=== PATIENT | female | born 1995 | race African-American/Black ===

== ENCOUNTER 2016-12-25 21:58 | Emergency (ER) | payer SELFPAY ==
[~2016-12-25] VITALS: Ht 167.6 cm; Wt 80.0 kg
[2016-12-25 22:06] VITALS: BP 120/58; PULSE 68; RESP 18; TEMP 97.6; O2SAT 100
[2016-12-25] MEDS ORDERED: SODIUM CHLOR 0.9% 1000 ML INJ 1,000 ML IV SCH (22:11)
[2016-12-25] MEDS ORDERED: MORPHINE SULFATE 4 MG/ML INJ IV PUSH ONE (22:15)
[2016-12-25] MEDS ORDERED: ONDANSETRON HCL 4 MG/2 ML VIAL IV PUSH ONE (22:15)
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
[2016-12-25] MEDS ORDERED: ACETAMINOPHEN/HYDROcodone 325 MG/5 MG TAB PO ONE (22:45)
[2016-12-25 22:53] LABS: BLOOD, URINE NEG (NEG); COMMENT (UR) CULT NOT INDICATED; CULTURE IF INDICATED CULT NOT INDICATED; GLUCOSE,URINE NEG (NEG); HYALINE CAST, URINE 2 /lpf (RARE); KETONE, URINE NEG (NEG); MUCUS URINE FEW /lpf (OCC); NITRITE,URINE NEG (NEG); PH, URINE 5.5 (5.0-8.5); SQUAMOUS EPITHELIAL CELL URINE 1 /hpf (0-5); URINE COLOR YELLOW (YELLW/STRAW)
--- NOTE | 2016-12-25 22:54 | PD ---
Data Data Last Documented VS Vital Signs Date Time Temp Pulse Resp B/P Pulse Ox O2 Delivery O2 Flow Rate FiO2 12/25/16 22:06 97.6 68 18 120/58 100 Orders Urinalysis - C+S If Indicated (12/25/16 22:11) Iv Access Insert/Monitor (12/25/16 22:11) Morphine Inj (Morphine Inj) (12/25/16 22:15) Sodium Chlor 0.9% 1000 Ml Inj (Ns 1000 M (12/25/16 22:11) Ed Urine Pregnancytest Poc (12/25/16 22:11) Ondansetron Inj (Zofran Inj) (12/25/16 22:15) Acetamin-Hydrocod 325-5 Mg ([place] 5-325 (12/25/16 22:45) Labs Laboratory Tests Test 12/25/16 22:15 Urine Color YELLOW Urine Turbidity CLEAR Urine pH 5.5 Urine Specific [place] 1.028 Urine Protein NEG mg/dL Urine Glucose (UA) NEG mg/dL Urine Ketones NEG mg/dL Urine Occult Blood NEG Urine Nitrite NEG Urine Bilirubin NEG Urine Urobilinogen LESS THAN 2.0 MG/DL Urine Leukocyte Esterase NEG Urine RBC LESS THAN 1 /hpf Urine WBC LESS THAN 1 /hpf Urine Squamous Epithelial 1 /hpf Cells Urine Hyaline Casts 2 /lpf Urine Mucus FEW /lpf Microscopic Urinalysis Comment CULT NOT INDICATED MDM Medical Record Reviewed: Yes Supervised Visit with [place]: No Scripts No Active Prescriptions or Reported Meds Mariela Castorena MD Dec 25, 2016 22:54 history and physical. The patient was initially provided [-]. The patients laboratory studies were reviewed and remarkable for [-]. Radiology studies were reviewed and remarkable for [-] Scripts No Active Prescriptions or Reported Meds Mariela Castorena MD Dec 25, 2016 22:54 Mariela Castorena MD Dec 25, 2016 22:54
== END 2016-12-25 23:10 | disposition left against medical advice (07) ==
LOC: NEPE 21:58
DX: R10.32 Left lower quadrant pain (principal)
CPT/HCPCS: 81001; 84703; 99285

== ENCOUNTER 2017-01-02 01:30 | Emergency (ER) | payer SELFPAY ==
[~2017-01-02] VITALS: Ht 165.1 cm; Wt 80.0 kg
[2017-01-02 01:32] VITALS: BP 119/74; PULSE 69; RESP 16; TEMP 98.6; O2SAT 100
[2017-01-02] MEDS ORDERED: TRIA0.022 TOPICAL (02:38)
--- NOTE | 2017-01-02 02:40 | PD ---
HPI Chief Complaint: Skin Problem Time Seen by Provider: 02:36 Travel History International Travel<30 days: No Contact w/Intl Traveler<30days: No Traveled to known affect area: No History of Present Illness HPI Examined in the presence of a female nurse. 21-year-old female here with a forehead rash which started earlier today. The rash is intermittently mildly pruritic. Denies any new creams, lotions, detergents, hair chemicals, shampoos. Denies sore throat, cough, congestion, fevers, chills. No other complaints. PFSH Past Medical History Medical History: Denies Significant Hx Diminished Hearing: No ?: Not Past Surgical History Surgical History: No Previous Surgery Social History Alcohol Use: No Tobacco Use: No Substance Use: No Allergies-Medications (Allergen,Severity, Reaction): Coded Allergies: No Known Allergies (Unverified , 12/25/16) Reported Meds & Prescriptions Reported Meds & Active Scripts Active No Active Prescriptions or Reported Medications Review of Systems Except as stated in HPI: all other systems reviewed are Neg Physical Exam Narrative GENERAL: Well-nourished female in no acute distress SKIN: Warm and dry. Mild papular rash noted across the forehead. No vesicles, no pustules, no erythema, no induration, no fluctuance. HEAD: Atraumatic. Normocephalic. EYES: Pupils equal and round. No scleral icterus. No injection or drainage. ENT: No nasal bleeding or discharge. Mucous membranes pink and moist. NECK: Trachea midline. No JVD. CARDIOVASCULAR: Regular rate and rhythm. No murmur appreciated. RESPIRATORY: No accessory muscle use. Clear to auscultation. Breath sounds equal bilaterally. Data Data Last Documented VS Vital Signs Date Time Temp Pulse Resp B/P (MAP) Pulse Ox O2 Delivery O2 Flow Rate FiO2 01/02/17 01:32 98.6 69 16 119/74 (89) 100 Orders Orders Diphenhydramine (Benadryl) (01/02/17 02:45) [facility] Medical Decision Making Medical Screen Exam Complete: Yes Emergency Medical Condition: Yes Medical Record Reviewed: Yes Differential Diagnosis Irritant contact dermatitis, allergic contact dermatitis, acne, folliculitis Narrative Course History is most consistent with an irritant contact dermatitis, likely secondary to a hair chemical or facial chemical. She will be discharged with a short course of topical triamcinolone cream. Recommended Benadryl for itching. Diagnosis Primary Impression: Irritant contact dermatitis Qualified Codes: L24.9 - Irritant contact dermatitis, unspecified cause Additional Instructions: Medications prescribed. [id number] Benadryl for itching. Med/Other Pt SpecificInfo: Prescription(s) given Scripts Triamcinolone Topical (Triamcinolone Topical) 0.025 % Oint 1 APPLIC TOPICAL BID for Inflammation for 7 Days, GM 0 Refills Prov: Skylar Rodríguez DO 01/02/17 Disposition: 01 DISCHARGE HOME Condition: Stable Marco Lee Jan 02, 2017 02:40
[2017-01-02] MEDS ORDERED: diphenhydrAMINE HCL 25 MG CAP PO ONE (02:45)
== END 2017-01-02 03:43 | disposition home or self-care (01) ==
LOC: NEPD 01:30
DX: L24.9 Irritant contact dermatitis, unspecified cause (principal)
CPT/HCPCS: 99283

== ENCOUNTER 2017-06-19 01:16 | Emergency (ER) | payer SELFPAY ==
[~2017-06-19] VITALS: Ht 165.1 cm; Wt 82.0 kg
[~2017-06-19 01:16] MED LIST: TRIA0.022 TOPICAL
[2017-06-19 01:26] VITALS: BP 115/57; PULSE 76; RESP 16; TEMP 97.6; O2SAT 99
[2017-06-19] MEDS ORDERED: PANTOPRAZOLE SOD 40 MG DELAYED RELEASE TAB PO ONE (02:15)
--- NOTE | 2017-06-19 02:18 | PD ---
HPI Chief Complaint: Chest Pain Time Seen by Provider: 02:05 Travel History International Travel<30 days: No Contact w/Intl Traveler<30days: No Traveled to known affect area: No History of Present Illness HPI 21-year-old female complains of left upper chest pain and left upper sternal pain. Patient states that the pain started yesterday afternoon. Patient states the pain is sharp pain intermittent pain localized to the upper part of the chest and left upper chest area. Patient denies any pain radiation. Patient denies palpitation nausea diaphoresis. Patient states that she has history of reflux problem. Patient denies any abdominal pain. Patient denies any fever chills. Patient denies any coughing congestion. Patient denies any history of CAD. Patient denies history hypertension, diabetes, hyperlipidemia. Patient is a nonsmoker. Patient denies any illicit drug or alcohol abuse. PFSH Past Medical History Diminished Hearing: No GERD: Yes Tetanus Vaccination: > 5 Years ?: Unknown Past Surgical History Surgical History: No Previous Surgery Social History Alcohol Use: No Tobacco Use: No Substance Use: No Allergies-Medications (Allergen,Severity, Reaction): Coded Allergies: No Known Allergies (Unverified Adverse Reaction, Unknown, 06/19/17) Reported Meds & Prescriptions Reported Meds & Active Scripts Active No Active Prescriptions or Reported Medications Review of Systems General / Constitutional: No: Fever Eyes: No: Visual changes HENT: No: Headaches Cardiovascular: Positive: Chest Pain or Discomfort Respiratory: No: Shortness of Breath Gastrointestinal: No: Abdominal Pain Genitourinary: No: Dysuria Musculoskeletal: No: Pain Skin: No Rash Neurologic: No: Weakness Psychiatric: No: Depression Endocrine: No: Polydipsia Hematologic/Lymphatic: No: Easy Bruising Physical Exam Narrative GENERAL: Well-nourished, well-developed patient. SKIN: Focused skin assessment warm/dry. HEAD: Normocephalic. EYES: No scleral icterus. No injection or drainage. NECK: Supple, trachea midline. No JVD or lymphadenopathy. CARDIOVASCULAR: Regular rate and rhythm without murmurs, gallops, or rubs. RESPIRATORY: Breath sounds equal bilaterally. No accessory muscle use. GASTROINTESTINAL: Abdomen soft, non-tender, nondistended. MUSCULOSKELETAL: No cyanosis, or edema. BACK: Nontender without obvious deformity. No CVA tenderness. Neurologic exam normal. Data Data Last Documented VS Vital Signs Date Time Temp Pulse Resp B/P (MAP) Pulse Ox O2 Delivery O2 Flow Rate FiO2 06/19/17 02:44 76 16 115/57 (76) 98 Room Air 06/19/17 01:26 97.6 Orders Orders Electrocardiogram (06/19/17 02:11) Complete Blood Count With Diff (06/19/17 02:11) Comprehensive Metabolic Panel (06/19/17 02:11) Creatine Kinase (Cpk) (06/19/17 02:11) Troponin I (06/19/17 02:11) Lipase (06/19/17 02:11) Urinalysis - C+S If Indicated (06/19/17 02:11) Chest, Single Ap (06/19/17 02:11) Iv Access Insert/Monitor (06/19/17 02:11) Ecg Monitoring (06/19/17 02:11) Oximetry (06/19/17 02:11) Ed Urine Pregnancytest Poc (06/19/17 02:11) Pantoprazole (Protonix) (06/19/17 02:15) Labs Laboratory Tests Test 06/19/17 02:40 06/19/17 03:15 White Blood Count 6.4 TH/MM3 Red Blood Count 4.95 MIL/MM3 Hemoglobin 14.3 GM/DL Hematocrit 42.5 % Mean Corpuscular Volume 85.9 FL Mean Corpuscular Hemoglobin 28.9 PG Mean Corpuscular Hemoglobin Concent 33.7 % Red Cell Distribution Width 14.0 % Platelet Count 215 TH/MM3 Mean Platelet Volume 9.2 FL Neutrophils (%) (Auto) 45.3 % Lymphocytes (%) (Auto) 47.7 % Monocytes (%) (Auto) 6.5 % Eosinophils (%) (Auto) 0.2 % Basophils (%) (Auto) 0.3 % Neutrophils # (Auto) 2.9 TH/MM3 Lymphocytes # (Auto) 3.0 TH/MM3 Monocytes # (Auto) 0.4 TH/MM3 Eosinophils # (Auto) 0.0 TH/MM3 Basophils # (Auto) 0.0 TH/MM3 CBC Comment DIFF FINAL Differential Comment MDM Medical Decision Making Medical Screen Exam Complete: Yes Emergency Medical Condition: Yes Interpretation(s) EKG shows sinus rhythm nonspecific ST-T wave change. Last Impressions Chest X-Ray 06/19/17210 Signed Impressions: Service Date/Time: Monday, June 19, 2017 02:20 - CONCLUSION: No acute cardiopulmonary abnormality is identified. Mac Lozano MD 3:54 AM. CBC within normal limit. Differential Diagnosis Differential diagnosis including musculoskeletal, costochondritis, angina, ID, PE, pneumothorax, GERD. Narrative Course 21-year-old female with chest pain. The pain is atypical. Protonix 40 mg by mouth given. 4:08 AM. Laboratory reported blood specimen hemolyzed. Requested redrawn. Patient refuses blood redrawn. Patient wants to leave. Diagnosis Primary Impression: Atypical chest pain Patient Instructions: General Instructions Additional Instructions: Advil or Tylenol for pain. Follow-up with local physician. Return if wishes for further workup. Scripts No Active Prescriptions or Reported Meds Disposition: 07 AGAINST MEDICAL ADVICE Condition: Stable Bobby Ernandez MD Jun 19, 2017 02:18
--- NOTE | 2017-06-19 02:38 | RADRPT ---
EXAM DATE/TIME: 06/19/2017 02:20 [place] COMPARISON: No previous studies available for comparison. INDICATIONS : Short of breath, chest pain. MEDICAL HISTORY : None. SURGICAL HISTORY : None. ENCOUNTER: Initial ACUITY: 1 day PAIN SCORE: 0/10 LOCATION: Bilateral chest FINDINGS: Portable AP view of the chest demonstrates a normal-sized cardiac silhouette. No effusion, consolidat ion, or pneumothorax is visualized. The bones and soft tissues demonstrate no acute abnormality. Lung s are underinflated. CONCLUSION: No acute cardiopulmonary abnormality is identified. Mac Lozano MD on June 19, 2017 at 2:36 Board Certified Radiologist. This report was verified electronically.
[2017-06-19 02:44] VITALS: BP 115/57; PULSE 76; RESP 16; O2SAT 98
[2017-06-19 02:56] LABS: AUTOMATED NEUTROPHIL # 2.9 TH/MM3 (1.8-7.7); BASOPHIL % 0.3 % (0.0-2.0); EOSINOPHIL % 0.2 % (0.0-4.0); HEMATOCRIT 42.5 % (35.0-46.0); HEMOGLOBIN 14.3 GM/DL (11.6-15.3); LYMPH % 47.7 % (9.0-44.0); MEAN CELL VOLUME 85.9 FL (80.0-100.0); MEAN CORPUSCULAR HEMOGLOBIN 28.9 PG (27.0-34.0); MEAN CORPUSCULAR HGB CONC 33.7 % (32.0-36.0); MEAN PLATELET VOLUME 9.2 FL (7.0-11.0); MONO % 6.5 % (0.0-8.0); MONOCYTE # 0.4 TH/MM3 (0-0.9); NEUT % 45.3 % (16.0-70.0); PLATELET COUNT 215 TH/MM3 (150-450); RED BLOOD COUNT 4.95 MIL/MM3 (4.00-5.30); WHITE BLOOD COUNT 6.4 TH/MM3 (4.0-11.0)
--- NOTE | 2017-06-19 11:02 | EKG ---
Date Performed: 06/19/2017 Time Performed: 01:29:11 PTAGE: 21 years EKG: Sinus rhythm WITH SINUS ARRHYTHMIA NORMAL ECG NO PREVIOUS TRACING DOCTOR: Prashanth Ramirez Interpretating Date/Time 06/19/2017 10:58:26
== END 2017-06-19 04:48 | disposition left against medical advice (07) ==
LOC: NEPC 01:16
DX: R07.89 Other chest pain (principal); K21.9 Gastro-esophageal reflux disease without esophagitis
CPT/HCPCS: 71045; 84703; 85025; 93005; 99285